=== PATIENT | male | born 1990 | race Caucasian/White ===

== ENCOUNTER 2016-11-24 16:35 | Emergency (ER) | payer OTHER ==
[2016-11-24 16:36] VITALS: BMI 24.4
[2016-11-24 16:43] VITALS: BP 158/67; PULSE 77; RESP 16; TEMP 98.4; O2SAT 97
--- NOTE | 2016-11-24 17:42 | C.PDOC ---
History Of Present Illness 26 yr old male presents to the ER stating while at work he got his left hand, pinky finger caught between a machine. States he pulled his hand out quickly but lost part of his nail. patient is complaining of throbbing pain to the area. States he cleaned the area. Denies chest pain, shoulder pain, neck pain, arm pain. Tetanus is not UTD. 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 Cardiovascular: Negative for: Chest Pain Musculoskeletal: Positive for: Other ((+) Left hand, pinky finger injury ). Negative for: Neck Pain, Shoulder Pain, Arm Pain Physical Exam - Physical Exam Appears: Non-toxic, No Acute Distress Skin: Warm, Dry, No Rash Head: Atraumatic, Normacephalic Eye(s): bilateral: Normal Inspection Neck: Normal ROM, No Supple Chest: Symmetrical Extremity: Normal ROM, Other (Left Hand, 5th Digit with partial avulsion of the distal nail plate, no active bleeding, swelling and tissue contusion) Pulses: Left Radial: Normal, Right Radial: Normal Neurological/Psych: Oriented x3, Normal Speech, Normal Motor, Normal Sensation Gait: Steady ED Course And Treatment O2 Sat by Pulse Oximetry: 97 Pulse Ox Interpretation: Normal Medical Decision Making Medical Decision Making: PLAN: * X-Ray - Left Hand * Tetanus IM Xray reviewed by me showing suspicious distal tuft fx non-displaced. Wound cleansed and irrigated with NS and betadyne, no active bleeding. Apply bacitracin to nail bed and cover wound with xeroform gauze dressing. Aluminum finger splint applied. Instruct patient to follow up with hand surgeon Dr Chavarria in few days. Patient will be discharged with Rx and understood instructions Disposition Counseled Patient/Family Regarding: Diagnosis, Need For Followup, Rx Given - Disposition Referrals: Caroline Chavarria MD [Staff Provider] - Disposition: HOME/ ROUTINE Disposition Time: 18:25 Condition: STABLE Additional Instructions: Your Xray shows fracture to left pinky fingertip. You must follow up with hand specialist Dr Chavarria within one week. Take antibiotic and pain medicine as prescribed Change dressing in 2 days, apply bacitracin and cover Keep splint in place for 2 weeks. Prescriptions: Acetaminophen with Codeine [Tylenol with Codeine No. 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 - Scribe Statement The provider has reviewed the documentation as recorded by the Scribe Stacey Perez All medical record entries made by the Scribe were at my direction and personally dictated by me. I have reviewed the chart and agree that the record accurately reflects my personal performance of the history, physical exam, medical decision making, and the department course for this patient. I have also personally directed, reviewed, and agree with the discharge instructions and disposition.
[2016-11-24] MEDS ORDERED: Bacitracin 500 Units/gm Oint Foilpak UD TOP ONE (18:16)
--- NOTE | 2016-11-25 09:56 | RAD ---
PROCEDURE: Left small finger radiographs. HISTORY: pain s.p injury, nail avulsion COMPARISON: None. TECHNIQUE: AP radiograph of the left hand, as well as spot oblique and lateral images of left small finger were obtained. FINDINGS: LEFT SMALL FINGER: Left 5th digit distal phalangeal tuft nondisplaced fracture. JOINTS: Normal. SOFT TISSUES: Normal. OTHER FINDINGS: None. IMPRESSION: Left 5th digit distal phalangeal tuft nondisplaced fracture. No dislocation. No radiopaque foreign body noted
== END 2016-11-24 18:37 | disposition home or self-care (01) ==
LOC: C.ER 16:35
DX: S62.667A Nondisplaced fracture of distal phalanx of left little finger, initial encounter for closed fracture (principal); S61.307A Unspecified open wound of left little finger with damage to nail, initial encounter; W31.9XXA Contact with unspecified machinery, initial encounter; Y92.9 Unspecified place or not applicable; Y99.0 Civilian activity done for income or pay; Z23 Encounter for immunization

== ENCOUNTER 2016-11-25 07:26 | Emergency (ER) | payer OTHER ==
[2016-11-25 07:31] VITALS: BMI 25.0
[2016-11-25 07:34] VITALS: BP 114/79; PULSE 67; TEMP 97.8; O2SAT 98
--- NOTE | 2016-11-25 08:41 | C.PDOC ---
History Of Present Illness 26 y/o male presents to ED with complaints of overnight wound bleeding and dressing to left 5th finger. Patient was seen at ED yesterday for Nail avulsion and tuft fracture. No active bleeding is depicted at this time. Patient denies fever, numbness or any other complaints at this time. Time Seen by Provider: 11/25/16 07:58 Chief Complaint (Nursing): Finger,Hand,&Wrist History Per: Patient History/Exam Limitations: no limitations Onset/Duration Of Symptoms: Hrs Current Symptoms Are (Timing): Still Present Past Medical History Reviewed: Historical Data, Nursing Documentation, Vital Signs Vital Signs: Last Vital Signs Temp 97.8 F 11/25/16 07:31 Pulse 67 11/25/16 07:31 Resp 18 11/25/16 08:46 BP 114/79 11/25/16 07:31 Pulse Ox 98 11/25/16 09:00 - Medical History PMH: Asthma - [facility] Procedures APPLICATION OF SPLINT (01/15/14) COLONOSCOPY (05/05/14) Family History: States: No Known Family Hx - Social History Hx Alcohol Use: No Hx Substance Use: Yes - Immunization History Hx Tetanus Toxoid Vaccination: No (2010) Review Of Systems Constitutional: Negative for: Fever, Chills Cardiovascular: Negative for: Chest Pain Gastrointestinal: Negative for: Nausea, Vomiting, Diarrhea Skin: Positive for: Lesions Neurological: Negative for: Weakness, Numbness Physical Exam - Physical Exam Appears: Non-toxic, No Acute Distress Skin: Normal Color, Warm Oral Mucosa: Moist Extremity: Tenderness (Moderate tenderness to left 5th tuft), Swelling (slight swell to the left 5th tuft), Other (No active bleeding, 5th Distal 1/2 nail missing) Neurological/Psych: Oriented x3, Normal Speech, Normal Cognition ED Course And Treatment O2 Sat by Pulse Oximetry: 98 (RA) Pulse Ox Interpretation: Normal Medical Decision Making Medical Decision Making: dressing changed, wound clean and dry no bleeding Disposition - Disposition Disposition: HOME/ ROUTINE Disposition Time: 08:38 Condition: GOOD Additional Instructions: Wash daily soap and water cover with bacatracin and dressing Instructions: Nail Avulsion (ED) - Clinical Impression Clinical Impression: Nail avulsion, Dressing change - Scribe Statement The provider has reviewed the documentation as recorded by the Scribguillaume Flores All medical record entries made by the Scribe were at my direction and personally dictated by me. I have reviewed the chart and agree that the record accurately reflects my personal performance of the history, physical exam, medical decision making, and the department course for this patient. I have also personally directed, reviewed, and agree with the discharge instructions and disposition.
[2016-11-25 08:48] VITALS: RESP 18
== END 2016-11-25 08:48 | disposition home or self-care (01) ==
LOC: C.ER 07:26
DX: Z48.00 Encounter for change or removal of nonsurgical wound dressing (principal)